=== PATIENT | female | born 1985 | race Caucasian/White ===

== ENCOUNTER 2025-08-09 06:29 | Inpatient (IN) | payer SELFPAY ==
[2025-08-09 09:53] VITALS: BMI 51.1
[2025-08-09] MEDS: Ondansetron PF 4 MG/2 ML Vial IVP PRN (11:09)
[2025-08-09] MEDS: cefTRIAXone\\ROCEPHIN 2 GM in Sodium Chloride 0.9% 100 ML IVPB SCH (11:10)
[2025-08-09] MEDS ORDERED: Lidocaine 2% Viscous Solution 20 ML, Aluminum & Magnesium Hydroxide 30 ML, Donnatal Eli... SSW SCH (12:45)
[2025-08-09] MEDS: Lidocaine 10 ML, Aluminum & Magnesium Hydroxide 30 ML SSW SCH (13:17)
[2025-08-09 13:58] LABS: Iron 8 ug/dL (50-170); Iron Binding Capacity, Total 326 mcg/dL (265-497)
[2025-08-09] MEDS: Acetaminophen 325 MG TAB PO PRN (14:00)
[2025-08-09] MEDS: Ibuprofen 200 MG TAB PO SCH (14:01)
[2025-08-09 14:02] LABS: Iron 8 ug/dL (50-170); Iron Binding Capacity, Total 326 mcg/dL (265-497); Transferrin, Serum 261 mg/dL (180-382); Troponin I Less than 0.010 ng/mL (< 0.028)
[2025-08-09 14:22] LABS: Hematocrit 29.8 % (34.9-44.5); Hemoglobin 8.2 g/dL (12.0-15.5); Mean Corpuscular Hemoglobin 18.0 pg (27.0-33.0); Mean Corpuscular Volume 65.5 fL (81.6-98.3); Platelet Count 389 10x3/uL (150-450); Red Blood Cell (RBC) Count 4.55 10x6/uL (3.90-5.03); White Blood Cell (WBC) Count 17.54 10x3/uL (3.5-10.5)
[2025-08-09] MEDS ORDERED: Calcium Carbonate 500 MG ChewTAB PO PRN (14:33)
[2025-08-09] MEDS: Melatonin 3 MG TAB PO SCH (15:30)
[2025-08-09 16:57] LABS: ALV-art Gradient 80.465 mmHg (0-20); Actual Bicarbonate (HCO3a) 20.4 mEq/L (22-28); Analyzer IN Cardio CS ER; Base Excess (BEa) -4.6 mEq/L (-2.0 to +3.0); CO2 Tension 37.1 mmHg (35.0-45.0); Calcium, Ionized (arterial) 1.07 mmol/L (1.12-1.30); Hematocrit-ABG 26 % (36.0-47.0); Hemoglobin (Hb) 8.7 g/dL (12.0-16.0); O2 Tension (PaO2), arterial 72.8 mmHg (80.0-100.0); Potassium - ABG Lab 3.92 mmol/L (3.70-5.30); Puncture Site Right Radial artery; pH, Arterial 7.358 (7.35-7.45)
[2025-08-09] MEDS ORDERED: PHOS-NAK 1 PKT PACK PO PRN (20:15)
[2025-08-09] MEDS ORDERED: Potassium Chloride 20 MEQ in Premix 1 BAG IVPB PRN (20:15)
[2025-08-09] MEDS ORDERED: Magnesium Sulfate In Water 4 GM in Premix 1 BAG IVPB PRN (20:15)
[2025-08-09] MEDS: Melatonin 3 MG TAB PO PRN (20:23)
[2025-08-09] MEDS: Electrolyte Replacement Protocol 1 EACH FS ONE (21:33)
[2025-08-10 03:47] LABS: ALT (SGPT) 7 U/L (Less than 34); AST (SGOT) 11 U/L (11-34); Albumin 2.4 g/dL (3.1-4.5); Alkaline Phosphatase 56 U/L (40-110); Anion Gap 12 mmol/L (10-20); BUN (Urea Nitrogen) 10 mg/dL (7.0-18.7); Bilirubin, Total 0.8 mg/dL (0.3-1.2); Calc. Creatinine Clearance 204 mL/min (70-130); Calcium 7.7 mg/dL (7.8-10.44); Carbon Dioxide 22 mmol/L (22-29); Chloride 108 mmol/L (98-107); Globulin 3.9 g/dL (2.4-3.5); Glucose 117 mg/dL (70-105); Magnesium 1.6 mg/dL (1.6-2.6); Potassium 3.8 mmol/L (3.5-5.1); Sodium 138 mmol/L (136-145)
[2025-08-10 03:53] LABS: Hematocrit 24.7 % (34.9-44.5); Hemoglobin 6.8 g/dL (12.0-15.5); Mean Corpuscular Hemoglobin 17.8 pg (27.0-33.0); Mean Corpuscular Volume 64.5 fL (81.6-98.3); Platelet Count 263 10x3/uL (150-450); Red Blood Cell (RBC) Count 3.83 10x6/uL (3.90-5.03); White Blood Cell (WBC) Count 9.19 10x3/uL (3.5-10.5)
[2025-08-10 03:54] LABS: #Basophils Less than 0.03 10x3/uL (0.0-0.2); #Eosinophils 0.03 10x3/uL (0.0-0.5); #Monocytes 0.59 10x3/uL (0.0-1.1); #Neutrophils 7.84 10x3/uL (1.5-8.4); %Basophils 0.2 % (0.0-2.0); %Eosinophils 0.3 % (0.0-6.0); %Lymphocytes 7.2 % (18.0-47.0); %Monocytes 6.4 % (0.0-10.0); %Neutrophils 85.4 % (40.0-75.0)
[2025-08-10 03:55] LABS: MDiff Complete? YES; Microcytosis MODERATE=15-30 cells (100X) (0-5/hpf); Platelet Adequacy Comment Appears Adequate
[2025-08-10 06:15] LABS: Chlamydia by PCR, Vaginal Swab Not Detected (NotDetected); GC by PCR, Vaginal Swab Not Detected (NotDetected)
[2025-08-10] MEDS: Pantoprazole 40 MG DR.TAB PO SCH (08:45)
[2025-08-10 10:26] LABS: Hematocrit 28.2 % (34.9-44.5); Hemoglobin 7.9 g/dL (12.0-15.5)
[2025-08-10 16:19] LABS: Hematocrit 25.5 % (34.9-44.5); Hemoglobin 7.4 g/dL (12.0-15.5)
[2025-08-10 22:23] LABS: Hematocrit 25.2 % (34.9-44.5); Hemoglobin 7.2 g/dL (12.0-15.5)
[2025-08-11 05:27] LABS: #Basophils Less than 0.03 10x3/uL (0.0-0.2); #Eosinophils 0.07 10x3/uL (0.0-0.5); #Monocytes 0.51 10x3/uL (0.0-1.1); #Neutrophils 8.51 10x3/uL (1.5-8.4); %Basophils 0.2 % (0.0-2.0); %Eosinophils 0.7 % (0.0-6.0); %Lymphocytes 10.0 % (18.0-47.0); %Monocytes 5.0 % (0.0-10.0); %Neutrophils 83.2 % (40.0-75.0); Hematocrit 25.3 % (34.9-44.5); Hemoglobin 7.1 g/dL (12.0-15.5); Mean Corpuscular Hemoglobin 18.5 pg (27.0-33.0); Mean Corpuscular Volume 66.1 fL (81.6-98.3); Platelet Count 236 10x3/uL (150-450); Red Blood Cell (RBC) Count 3.83 10x6/uL (3.90-5.03); White Blood Cell (WBC) Count 10.22 10x3/uL (3.5-10.5)
[2025-08-11 05:39] LABS: ALT (SGPT) Less than 7 U/L (Less than 34); AST (SGOT) 11 U/L (11-34); Albumin 2.1 g/dL (3.1-4.5); Alkaline Phosphatase 52 U/L (40-110); Anion Gap 10 mmol/L (10-20); BUN (Urea Nitrogen) 5 mg/dL (7.0-18.7); Bilirubin, Total 0.3 mg/dL (0.3-1.2); Calc. Creatinine Clearance 252 mL/min (70-130); Calcium 7.9 mg/dL (7.8-10.44); Carbon Dioxide 26 mmol/L (22-29); Chloride 107 mmol/L (98-107); Globulin 3.8 g/dL (2.4-3.5); Glucose 114 mg/dL (70-105); Potassium 3.8 mmol/L (3.5-5.1); Sodium 139 mmol/L (136-145)
[2025-08-11 13:53] VITALS: BMI 51.1
[2025-08-11] MEDS: Clindamycin/D5W 900 MG in Premix 1 BAG IVPB SCH (14:01)
[2025-08-11] MEDS: diphenhydrAMINE 25 MG CAP PO SCH (17:08)
[2025-08-12 00:08] LABS: Gentamicin, Random 3.2 ug/mL (See Comment)
[2025-08-12 04:56] LABS: #Basophils Less than 0.03 10x3/uL (0.0-0.2); #Eosinophils 0.31 10x3/uL (0.0-0.5); #Monocytes 0.55 10x3/uL (0.0-1.1); #Neutrophils 7.35 10x3/uL (1.5-8.4); %Basophils 0.2 % (0.0-2.0); %Eosinophils 3.3 % (0.0-6.0); %Lymphocytes 11.0 % (18.0-47.0); %Monocytes 5.9 % (0.0-10.0); %Neutrophils 78.8 % (40.0-75.0); Hematocrit 29.0 % (34.9-44.5); Hemoglobin 8.4 g/dL (12.0-15.5); Mean Corpuscular Hemoglobin 19.5 pg (27.0-33.0); Mean Corpuscular Volume 67.4 fL (81.6-98.3); Platelet Count 252 10x3/uL (150-450); Red Blood Cell (RBC) Count 4.30 10x6/uL (3.90-5.03); White Blood Cell (WBC) Count 9.33 10x3/uL (3.5-10.5)
[2025-08-12 05:08] LABS: ALT (SGPT) Less than 7 U/L (Less than 34); AST (SGOT) 11 U/L (11-34); Albumin 2.1 g/dL (3.1-4.5); Alkaline Phosphatase 50 U/L (40-110); Anion Gap 11 mmol/L (10-20); BUN (Urea Nitrogen) 4 mg/dL (7.0-18.7); Bilirubin, Total 0.5 mg/dL (0.3-1.2); Calc. Creatinine Clearance 264 mL/min (70-130); Calcium 8.2 mg/dL (7.8-10.44); Carbon Dioxide 27 mmol/L (22-29); Chloride 107 mmol/L (98-107); Globulin 3.9 g/dL (2.4-3.5); Glucose 105 mg/dL (70-105); Potassium 3.2 mmol/L (3.5-5.1); Sodium 142 mmol/L (136-145)
[2025-08-12] MEDS: Potassium Chloride 10 MEQ in Premix 1 BAG IVPB SCH (09:39)
[2025-08-13 03:47] LABS: #Basophils Less than 0.03 10x3/uL (0.0-0.2); #Eosinophils 0.30 10x3/uL (0.0-0.5); #Monocytes 0.68 10x3/uL (0.0-1.1); #Neutrophils 6.53 10x3/uL (1.5-8.4); %Basophils 0.2 % (0.0-2.0); %Eosinophils 3.3 % (0.0-6.0); %Lymphocytes 15.5 % (18.0-47.0); %Monocytes 7.5 % (0.0-10.0); %Neutrophils 72.5 % (40.0-75.0); Hematocrit 30.5 % (34.9-44.5); Hemoglobin 8.7 g/dL (12.0-15.5); Mean Corpuscular Hemoglobin 19.1 pg (27.0-33.0); Mean Corpuscular Volume 66.9 fL (81.6-98.3); Platelet Count 298 10x3/uL (150-450); Red Blood Cell (RBC) Count 4.56 10x6/uL (3.90-5.03); White Blood Cell (WBC) Count 9.02 10x3/uL (3.5-10.5)
[2025-08-13 03:52] LABS: Anion Gap 12 mmol/L (10-20); BUN (Urea Nitrogen) 5 mg/dL (7.0-18.7); Calc. Creatinine Clearance 241 mL/min (70-130); Carbon Dioxide 28 mmol/L (22-29); Chloride 104 mmol/L (98-107); Potassium 3.1 mmol/L (3.5-5.1); Sodium 141 mmol/L (136-145)
[2025-08-13 03:53] LABS: ALT (SGPT) Less than 7 U/L (Less than 34); AST (SGOT) 13 U/L (11-34); Albumin 2.2 g/dL (3.1-4.5); Alkaline Phosphatase 60 U/L (40-110); Bilirubin, Total 0.4 mg/dL (0.3-1.2); Calcium 8.2 mg/dL (7.8-10.44); Globulin 4.2 g/dL (2.4-3.5); Glucose 105 mg/dL (70-105)
[2025-08-13] MEDS ORDERED: Simethicone Chewable 80 MG TAB PO PRN (10:35)
[2025-08-13 15:43] LABS: Anion Gap 12 mmol/L (10-20); BUN (Urea Nitrogen) 5 mg/dL (7.0-18.7); Calc. Creatinine Clearance 252 mL/min (70-130); Calcium 8.3 mg/dL (7.8-10.44); Carbon Dioxide 28 mmol/L (22-29); Chloride 104 mmol/L (98-107); Glucose 97 mg/dL (70-105); Potassium 3.2 mmol/L (3.5-5.1); Sodium 141 mmol/L (136-145)
[2025-08-13] MEDS: Ibuprofen 200 MG TAB PO PRN (19:37)
[2025-08-13] MEDS: metroNIDAZOLE 500 MG TAB PO SCH (21:27)
[2025-08-14 04:02] LABS: Anion Gap 10 mmol/L (10-20); BUN (Urea Nitrogen) 4 mg/dL (7.0-18.7); Calc. Creatinine Clearance 260 mL/min (70-130); Calcium 8.1 mg/dL (7.8-10.44); Carbon Dioxide 29 mmol/L (22-29); Chloride 103 mmol/L (98-107); Glucose 109 mg/dL (70-105); Potassium 3.3 mmol/L (3.5-5.1); Sodium 139 mmol/L (136-145)
[2025-08-14 07:38] VITALS: BP 142/80; TEMP 98.2
[2025-08-14] MEDS: Ferrous Sulfate 325 MG TAB PO SCH (08:06)
== END 2025-08-14 08:45 | disposition home or self-care (01) | DRG 872 ==
LOC: CSHANTE 09:10 → OBSVTOIN 09:50 → CSHICU 17:00 → CSHPP 08-10 12:58
PROVIDERS: ADMIT Obstetrics & Gynecology; ATTEND Obstetrics & Gynecology
PROC: 3E03329 Introduction of Other Anti-infective into Peripheral Vein, Percutaneous Approach (ICD-10-PCS; principal; 2025-08-09)
PROC: 30233N1 Transfusion of Nonautologous Red Blood Cells into Peripheral Vein, Percutaneous Approach (ICD-10-PCS; 2025-08-11)
DX: A41.9 Sepsis, unspecified organism (principal); E87.20 Acidosis, unspecified; Z68.43 Body mass index [BMI] 50.0-59.9, adult; N17.9 Acute kidney failure, unspecified; E66.01 Morbid (severe) obesity due to excess calories; Z98.891 History of uterine scar from previous surgery; N70.93 Salpingitis and oophoritis, unspecified; D50.9 Iron deficiency anemia, unspecified; E87.6 Hypokalemia; N73.9 Female pelvic inflammatory disease, unspecified
CPT/HCPCS: 36415; 36416; 36430; 36600; 71045; 76856; 80048; 80053; 80170; 82805; 83540; 83550; 83605; 83735; 84100; 84466; 85025; 85060; 86140; 86850; 86900; 86901; 87480; 87491; 87510; 87591; 87660; 93005; 93010; 93976; 94760; 94762; J0696; J1580; J2270; J2405; J2543; J3480; J3490; J7030; P9016